=== PATIENT | male | born 1940 | race Caucasian/White ===

== ENCOUNTER 2020-09-12 14:46 | Inpatient (IN) | payer OTHER, MEDICARE ==
[2020-09-12 16:03] LABS: Absolute Lymphocytes (CBC) 1.3 K/uL (0.7-4.9); Hematocrit 15.3 % (39.6-49.0); Lymphocytes % 18.8 % (15.3-44.8); MPV 7.1 fL (7.6-11.3); RBC Red Blood Cell Count 1.68 M/uL (4.33-5.43)
--- OUTSIDE RECORDS SUMMARY | 2020-09-12 16:05 | XMS REPORT | Continuity of Care Document ---
:1940 Author Organization [facility] t Address [address] [place] [address] Care Team Providers Name Role Phone Kasandra Adler Attending Clinician Halie DWYER Attending Clinician Vianey Shipman DO Attending Clinician Keron DWYER, L Attending Clinician IVELISSE Attending Clinician Unavailable MARISOL Attending Clinician Unavailable SEVEN Attending Clinician Unavailable CADY Attending Clinician Unavailable Halie DWYER Admitting Clinician SEVEN Admitting Clinician Unavailable IVELISSE Admitting Clinician Unavailable Payers Payer Name Policy Type Policy Number Effective Date Expiration Date S ource Problems This patient has no known problems. Allergies, Adverse Reactions, Alerts This patient has no known allergies or adverse reactions. Medications This patient has no known medications. Procedures This patient has no known procedures. Encounters Start End Encounter Admission Attending Care Care Encounter Source Date/Time Date/Time Type Type Clinicians Facility Department ID 2020-08-14 Outpatient READMISSIO ENCGEN ENCGEN [id number] ENCGEN 11:57:40 N 2020-08-13 Outpatient NEW ENCGEN ENCGEN [id number] EN CGEN 10:49:07 ADMISSION 2020-07-20 2020-07-30 [facility] Thelma Hernadez [facility] [id number] 09:37:00 23:30:00 Encounter Madeline Ambrose [place] [id number] [place] [id number] [place] [id number] 2020-06-18 2020-06-18 Emergency Umberto, [facility] [id number] 12:26:00 14:57:00 Agnes [place] [id number] [place] [id number] [place] [id number] 2020-02-22 2020-02-22 Emergency [facility] [id number] 15:14:50 19:26:00 Thelma [place] [id number] [place] [id number] [place] [id number] 2020-01-26 2020-01-26 [facility] [id number] 10:10:34 10:47:28 Visit [facility] [id number] Surgical [id number] [facility] [id number] es [address] [place] 2019-12-29 2019-12-29 Outpatient MURADOV, [facility] [id number] [place] 00:00:00 00:00:00 RICHIE [address] 2019-12-13 2019-12-13 Outpatient MURADOV, [facility] [id number] [place] 00:00:00 00:00:00 RICHIE [address] 2019-11-28 2019-11-28 Outpatient [facility], [facility] [id number] 168 [place] 00:00:00 00:00:00 ASHLEY [address] 2019-11-28 2019-11-28 Outpatient [facility] [id number] [place] 00:00:00 00:00:[address] 2019-11-22 2019-11-22 Outpatient MURADOV, [facility] [id number] [place] 00:00:00 00:00:00 RICHIE [address] 2019-11-12 2019-11-17 Inpatient AMEZCUA, [facility] [id number] [place] 00:00:00 00:00:[address] 2019-10-20 2019-10-20 Outpatient MURADOV, [facility] [id number] [place] 00:00:00 00:00:00 RICHIE [address] 2019-10-13 2019-10-13 Outpatient IVELISSE, [facility] [id number] [place] 00:00:00 00:00:00 RICHIE [address] 2019-10-13 2019-10-13 Outpatient IVELISSE, [facility] [id number] [place] 00:00:00 00:00:00 RICHIE [address] 2019-10-07 2019-10-07 Emergency BRANDAN LAZAR [facility] [id number] [place] 00:00:00 00:00:[address] 2019-09-08 2019-09-09 Outpatient ALEK AMEZCUA [facility] [id number] [place] 00:00:00 00:00:[address] 2019-08-24 2019-08-24 Outpatient IVELISSE, [facility] [id number] [place] 00:00:00 00:00:00 RICHIE [address] 2019-07-25 2019-07-26 Outpatient AMEZCUA, [facility] [id number] [place] 00:00:00 00:00:[address] Results This patient has no known results.
[2020-09-12 16:20] LABS: AST/SGOT 19 U/L (15-37); Albumin 2.1 g/dL (3.4-5.0); Alkaline Phosphatase 71 U/L (45-117); BUN Blood Urea Nitrogen 20 mg/dL (7-18); Bicarbonate 30 mmol/L (21-32); Bilirubin Direct 0.1 mg/dL (0-0.2); Bilirubin Total 0.3 mg/dL (0.2-1.0); Glucose Level 64 mg/dL (74-106); Potassium 4.3 mmol/L (3.5-5.1); Protein, Total 6.4 g/dL (6.4-8.2); Sodium Level 140 mmol/L (136-145); Troponin (Emerg Dept Use Only) < 0.02 ng/mL (0.0-0.045)
[2020-09-12 16:21] LABS: ALT/SGPT < 6 U/L (12-78); Protime INR 1.22
[2020-09-12 16:42] LABS: Blood Morphology Comment NOTED (NOT SEEN); Platelet Estimate ADEQ; Rouleau NOTED; White Blood Cell Scan OK (OK)
[2020-09-12] MEDS ORDERED: D50W 50 ML IV ONE (16:52)
--- NOTE | 2020-09-12 16:57 | EDPHYS ---
Physician Documentation [facility] Name: Toby Huff Age: 79 yrs Sex: Male : 1940 Arrival Date: 09/12/2020 Time: 15:03 Bed 8 Private MD: ED Physician Henry Isaac HPI: 09/12 15:12 This 79 yrs old Male presents to ER via Unassigned with complaints of Low cp Blood Pressure. 15:12 Home health reports patient with low blood pressure this morning. Patient referred to ED for evaluation. Historical: - Allergies: 15:24 PENICILLINS; ca1 - Home Meds: 15:24 carbidopa-levodopa 50-200 mg Oral TbER 1 tab 4 times per day [Active]; pramipexole 1.5 ca1 mg Oral tab 0.5 tab QID [Active]; selegiline HCl 5 mg Oral cap 1 cap 2 times per day [Active]; Pradaxa 150 mg Oral cap 1 cap 2 times per day [Active]; levothyroxine 50 mcg tab 1 tab once daily [Active]; potassium chloride 10 mEq Oral cpER 1 cap 2 times per day [Active]; - PMHx: 15:24 a fib; Parkinsons; ca1 - PSHx: 15:24 bilateral knee replacements; ca1 - Immunization history:: Adult Immunizations not up to date, Pneumococcal vaccine is not up to date, Flu vaccine is not up to date. Covid Vaccine up to date. - Social history:: Smoking status: Patient/guardian denies using tobacco, the patient reports quitting approximately 50 years ago. ROS: 15:20 Constitutional: Positive for poor PO intake, Negative for fever. cp 15:20 Respiratory: Positive for chest congestion. cp 15:20 Abdomen/GI: Negative for vomiting, diarrhea, black/tarry stool, rectal bleeding. 15:20 Neuro: Negative for altered mental status. 15:20 Unable to obtain ROS due to patient's speech is incomprehensible. Exam: 15:25 Constitutional: The patient appears in no acute distress, alert, awake, cp non-diaphoretic, non-toxic, well developed, frail. 15:25 Head/Face: Normocephalic, atraumatic. cp 15:25 Eyes: Periorbital structures: appear normal, Pupils: equal, round, and reactive to light and accomodation, Sclera: no appreciated abnormality, Lids and lashes: appear normal, bilaterally. 15:25 ENT: External ear(s): are unremarkable, Nose: is normal, Posterior pharynx: Airway: no evidence of obstruction, patent. 15:25 Neck: ROM/movement: is normal, is supple. 15:25 Chest/axilla: Inspection: normal, Palpation: is normal, no crepitus, no tenderness. 15:25 Cardiovascular: Rate: normal, Rhythm: regular. 15:25 Respiratory: the patient does not display signs of respiratory distress, Respirations: normal, no use of accessory muscles, no retractions, labored breathing, is not present, Breath sounds: are clear throughout, no decreased breath sounds. 15:25 Skin: large decubitus ulcer. 15:25 Neuro: Mentation: responsive to voice able to follow commands, non-verbal, Motor: the patient is contracted. 16:15 ECG was reviewed by the Attending Physician. cp 16:46 Abdomen/GI: Rectal exam: Stool: brown, guaiac negative. 09/13 10:50 ECG was reviewed by the Attending Physician. Vital Signs: 09/12 15:05 BP 139 / 67; Pulse 61; Resp 20; Temp 96(TE); Pulse Ox 96% on R/A; Weight 52.16 kg (R); ca1 15:46 BP 138 / 107; Pulse 86; Resp 17; Pulse Ox 99% ; bp 17:00 BP 112 / 81; Pulse 89; Resp 23; Pulse Ox 93% ; bp 18:00 BP 119 / 78; Pulse 94; Resp 20; Pulse Ox 91% ; bp 19:00 BP 89 / 62; Pulse 94; Resp 20 S; Pulse Ox 98% on R/A; ca1 19:40 BP 86 / 64; Pulse 89; Resp 20 S; Pulse Ox 98% on R/A; ca1 20:33 BP 101 / 48; Pulse 90; Resp 18 S; Pulse Ox 98% on R/A; ca1 MDM: 15:12 Patient medically screened. cp 16:00 Differential Diagnosis sepsis, anemia, cardiac arrythmia, electrolyte abnormality. cp 16:50 Data reviewed: vital signs, nurses notes, lab test result(s), radiologic studies, plain cp films. 16:50 Physician consultation: Pk Graham MD was called at 16:50, was contacted at 16:50, cp regarding admission, to the telemetry unit. patient's condition, and will see patient in ED, shortly. 09/12 15:16 Order name: Troponin (emerg Dept Use Only) 09/12 15:16 Order name: Basic Metabolic Panel 09/12 15:16 Order name: CBC with Diff 09/12 15:16 Order name: LFT's 09/12 15:16 Order name: PT-INR 09/12 15:16 Order name: Procalcitonin; Complete Time: 16:45 09/12 15:16 Order name: Lactate; Complete Time: 16:24 09/12 15:16 Order name: Urine Microscopic Only; Complete Time: 17:44 09/12 15:16 Order name: Blood Culture Adult (2) 09/12 15:17 Order name: Troponin (Emerg Dept Use Only); Complete Time: 16:24 EDMO 09/12 15:17 Order name: Basic Metabolic Panel; Complete Time: 16:23 EDMO 09/12 16:28 Interpretation: Normal except: GLUC 64; BUN 20; CA 8.4. 09/12 15:17 Order name: CBC with Automated Diff; Complete Time: 16:45 EDMO 09/12 15:17 Order name: Liver (Hepatic) Function; Complete Time: 16:23 EDMO 09/12 15:17 Order name: Protime (+INR); Complete Time: 16:24 EDMO 09/12 16:24 Order name: Type And Screen 09/12 16:24 Order name: CBC Smear Scan; Complete Time: 16:45 EDMO 09/12 16:45 Order name: COVID-19 : Document "Date of Symptom Onset" if Symptomatic. 09/12 16:51 Order name: Retic Count 09/12 16:55 Order name: Bb Add On 09/12 16:58 Order name: Packed RBC Leukored [facility] 09/12 17:13 Order name: Urine Dipstick--Ancillary (enter results) 09/12 17:14 Order name: Urine Dipstick-Ancillary; Complete Time: 17:44 EDMO 09/12 18:23 Order name: ABO/RH no charge [facility] 09/12 19:22 Order name: SARS-COV-2 RT PCR [facility] 09/12 20:20 Order name: Troponin I EDMO 09/13 00:11 Order name: Troponin I EDMO 09/13 05:37 Order name: CBC with Automated Diff EDMS 09/13 05:43 Order name: Basic Metabolic Panel EDMO 09/13 06:31 Order name: Glucose, Ancillary Testing EDMO 09/12 15:16 Order name: EKG; Complete Time: 15:17 cp 09/12 15:16 Order name: XRAY Chest (1 view); Complete Time: 17:44 cp 09/12 15:16 Order name: Cardiac monitoring; Complete Time: 16:14 cp 09/12 15:16 Order name: EKG - Nurse/Tech; Complete Time: 16:14 cp 09/12 15:16 Order name: IV Saline Lock; Complete Time: 15:50 cp 09/12 15:16 Order name: Labs collected and sent; Complete Time: 15:50 cp 09/12 15:16 Order name: O2 Per Protocol; Complete Time: 15:50 cp 09/12 15:16 Order name: O2 Sat Monitoring; Complete Time: 15:50 cp 09/12 15:16 Order name: Urine Dipstick-Ancillary (obtain specimen); Complete Time: 17:17 cp 09/12 15:16 Order name: Cath; Complete Time: 17:17 cp 09/12 16:59 Order name: Labs - recollect needed: recollect type and screen, reband pt.; Complete bd Time: 17:29 09/12 19:23 Order name: Transfuse; Complete Time: 21:22 cp 09/13 08:01 Order name: Glucose, Ancillary Testing EDMO 09/13 12:49 Order name: Gram Stain--Anaerobic Bottle EDMO 09/13 14:12 Order name: Glucose, Ancillary Testing EDMO EC:15 Rate is 86 beats/min. Rhythm is irregular. QRS interval is normal. QT interval is cp prolonged at 400 msec. Interpreted by me. Reviewed by me. 09/13 10:50 Rate is 73 beats/min. Rhythm is irregular. QRS interval is normal. QT interval is cp normal. T waves are Inverted in lead III. Interpreted by me. Reviewed by me. Administered Medications: 09/12 16:45 Drug: D50W 50 ml Route: IVP; Site: right forearm; ca1 16:50 Drug: NS 0.9% 1000 ml Route: IV; Rate: 1 bolus; Site: right forearm; ca1 18:59 Follow up: Response: No adverse reaction; IV Status: Completed infusion; IV Intake: ca1 1000ml 19:45 Drug: NS 0.9% 500 ml Route: IV; Rate: bolus; Site: right forearm; ca1 Disposition: 17:10 Chart complete. cp Disposition: 09/12/20 16:56 Hospitalization ordered by Pk Graham for Inpatient Admission. Preliminary diagnosis are Anemia in chronic diseases classified elsewhere, Hypotension. - Bed requested for Telemetry/MedSurg (Inpatient). - Status is Inpatient Admission. aa5 - Condition is Stable. - Problem is new. - Symptoms have improved. Addendum: 09/15/2020 07:08 Co-signature as Attending Physician, Henry Isaac MD. m a2 Signatures: Dispatcher [employer] EDMS Donya Key Diana, RN RN Cece Gong RN RN aa5 Angel Mcbride PA PA cp Alzahri, Mohammad, MD MD ma2 Jaylyn Pleitez RN RN ca1 Corrections: (The following items were deleted from the chart) 09/12 16:28 16:27 Normal except: GLUC 64; BUN 20. cp cp 18:20 16:45 CORONAVIRUS ordered. EDMO EDMS 18:23 16:56 Hospitalization Ordered by Pk Graham MD for Inpatient Admission. Preliminary bd diagnosis is Anemia in chronic diseases classified elsewhere; Hypotension. Bed requested for Telemetry/MedSurg (Inpatient). Status is Inpatient Admission. Condition is Stable. Problem is new. Symptoms have improved. cp 09/13 15:26 09/12 18:23 09/12/2020 16:56 Hospitalization Ordered by Pk Graham MD for Inpatient dw Admission. Preliminary diagnosis is Anemia in chronic diseases classified elsewhere; Hypotension. Bed requested for [facility] ER HOLD. Status is Inpatient Admission. Condition is Stable. Problem is new. Symptoms have improved. bd 09/13 16:12 15:26 09/12/2020 16:56 Hospitalization Ordered by Pk Graham MD for Inpatient aa5 Admission. Preliminary diagnosis is Anemia in chronic diseases classified elsewhere; Hypotension. Bed requested for Telemetry/MedSurg (Inpatient). Status is Inpatient Admission. Condition is Stable. Problem is new. Symptoms have improved. dw :09/12 15:20 Constitutional: Negative for body aches, chills, fever, poor PO intake, cp cp 09/13 15:20 Eyes: Negative for injury, pain, redness, and discharge, cp cp
--- NOTE | 2020-09-12 16:57 | ER ---
Nurse's Notes [facility] Name: Toby Huff Age: 79 yrs Sex: Male : 1940 Arrival Date: 09/12/2020 Time: 15:03 Bed 8 Private MD: Diagnosis: Anemia in chronic diseases classified elsewhere;Hypotension Presentation: 09/12 15:05 Chief complaint: EMS states: Called for low BP. HH states BP was on the 70s systolic. ca1 Upon arrival on scene BP was 75/45. IV initiated, NS 500 ML bolus given. Last BP 111/80. BGL 71. Temp 98F. Pt has hx of Parkinson's and being seen by HH for Decubitus Ulcers at sacral region. Denies fever. Coronavirus screen: Client denies travel out of the [place] in the last 14 days. congestion, cough unrelated to allergies, Client presents with at least one sign or symptom that may indicate coronavirus-19. Standard/surgical mask placed on the client. Provider contacted for isolation considerations. Ebola Screen: Patient negative for fever greater than or equal to 101.5 degrees Fahrenheit, and additional compatible Ebola Virus Disease symptoms Patient denies exposure to infectious person. Patient denies travel to an Ebola-affected area in the 21 days before illness onset. No symptoms or risks identified at this time. Initial Sepsis Screen: Does the patient meet any 2 criteria? No. Patient's initial sepsis screen is negative. Does the patient have a suspected source of infection? No. Patient's initial sepsis screen is negative. Risk Assessment: Do you want to hurt yourself or someone else? Patient reports no desire to harm self or others. Onset of symptoms was September 12, 2020. 15:05 Method Of Arrival: EMS[facility] ca1 15:05 Acuity: NIKITA 2 ca1 Triage Assessment: 15:10 General: Appears distressed, uncomfortable, slender, Behavior is agitated, anxious, bp uncooperative. Pain: Unable to use pain scale. Does not appear to understand pain scale. EENT: No deficits noted. Neuro: No deficits noted. Cardiovascular: No deficits noted. Respiratory: No deficits noted. GI: No signs and/or symptoms were reported involving the gastrointestinal system. : No signs and/or symptoms were reported regarding the genitourinary system. Derm: Wound noted coccyx. Musculoskeletal: Range of motion: intact in all extremities. Historical: - Allergies: 15:24 PENICILLINS; ca1 - Home Meds: 15:24 carbidopa-levodopa 50-200 mg Oral TbER 1 tab 4 times per day [Active]; pramipexole 1.5 ca1 mg Oral tab 0.5 tab QID [Active]; selegiline HCl 5 mg Oral cap 1 cap 2 times per day [Active]; Pradaxa 150 mg Oral cap 1 cap 2 times per day [Active]; levothyroxine 50 mcg tab 1 tab once daily [Active]; potassium chloride 10 mEq Oral cpER 1 cap 2 times per day [Active]; - PMHx: 15:24 a fib; Parkinsons; ca1 - PSHx: 15:24 bilateral knee replacements; ca1 - Immunization history:: Adult Immunizations not up to date, Pneumococcal vaccine is not up to date, Flu vaccine is not up to date. Covid Vaccine up to date. - Social history:: Smoking status: Patient/guardian denies using tobacco, the patient reports quitting approximately 50 years ago. Screenin:10 Abuse screen: Denies threats or abuse. Denies injuries from another. Nutritional bp screening: No deficits noted. Tuberculosis screening: No symptoms or risk factors identified. Fall Risk None identified. Assessment: 15:10 General: SEE TRIAGE NOTE. bp 17:00 Reassessment: No changes from previously documented assessment. Patient and/or family bp updated on plan of care and expected duration. Pain level reassessed. ALL CURRENT ORDERS COMPLETE, ADMIT INITIATED. 18:12 Reassessment: Patient appears in no apparent distress at this time. No changes from bp previously documented assessment. Patient and/or family updated on plan of care and expected duration. Pain level reassessed. 18:58 Reassessment: Patient appears in no apparent distress at this time. Patient and/or ca1 family updated on plan of care and expected duration. Pain level reassessed. Vital Signs: 15:05 BP 139 / 67; Pulse 61; Resp 20; Temp 96(TE); Pulse Ox 96% on R/A; Weight 52.16 kg (R); ca1 15:46 BP 138 / 107; Pulse 86; Resp 17; Pulse Ox 99% ; bp 17:00 BP 112 / 81; Pulse 89; Resp 23; Pulse Ox 93% ; bp 18:00 BP 119 / 78; Pulse 94; Resp 20; Pulse Ox 91% ; bp 19:00 BP 89 / 62; Pulse 94; Resp 20 S; Pulse Ox 98% on R/A; ca1 19:40 BP 86 / 64; Pulse 89; Resp 20 S; Pulse Ox 98% on R/A; ca1 20:33 BP 101 / 48; Pulse 90; Resp 18 S; Pulse Ox 98% on R/A; ca1 ED Course: 15:03 Patient arrived in ED. iw 15:03 Angel Mcbride PA is PHCP. cp 15:03 Henry Isaac MD is Attending Physician. cp 15:03 Jaylyn Pleitez, GIANLUCA is Primary Nurse. ca1 15:05 Arm band placed on right wrist. ca1 15:05 Maintain EMS IV. Dressing intact. Good blood return noted. Site clean \T\ dry. Gauge \T\ ca 1 site: LAC 20G. 15:10 Patient has correct armband on for positive identification. Bed in low position. Call bp light in reach. Side rails up X2. Adult w/ patient. 15:22 Triage completed. ca1 15:45 Inserted saline lock: 22 gauge in right forearm, using aseptic technique. Blood bp collected. 16:13 EKG done. mh5 16:13 Liver (Hepatic) Function Sent. mh5 16:13 Protime (+INR) Sent. mh5 16:13 CBC with Automated Diff Sent. mh5 16:13 Troponin (Emerg Dept Use Only) Sent. mh5 16:14 Basic Metabolic Panel Sent. mh5 16:14 Blood Culture Adult (2) Sent. mh5 16:14 Lactate Sent. mh5 16:14 Procalcitonin Sent. mh5 16:14 LFT's Sent. mh5 16:14 Troponin (emerg Dept Use Only) Sent. mh5 16:14 Basic Metabolic Panel Sent. mh5 16:15 CBC with Diff Sent. mh5 16:15 PT-INR Sent. mh5 16:19 XRAY Chest (1 view) In Process Unspecified. EDMS 16:56 Pk Graham MD is Hospitalizing Provider. cp 17:08 Hernadez cath inserted, using sterile technique, 18 Fr., by mi, balloon inflated, to ca1 gravity drainage, urine specimen collected. returned clear yellow urine. Patient tolerated well. 17:16 Urine Dipstick-Ancillary Sent. mh5 17:16 Urine Dipstick--Ancillary (enter results) Sent. 5 17:17 Urine Microscopic Only Sent. [facility] 19:18 No provider procedures requiring assistance completed. Patient admitted, IV remains in ca1 place. Administered Medications: 16:45 Drug: D50W 50 ml Route: IVP; Site: right forearm; ca1 16:50 Drug: NS 0.9% 1000 ml Route: IV; Rate: 1 bolus; Site: right forearm; ca1 18:59 Follow up: Response: No adverse reaction; IV Status: Completed infusion; IV Intake: ca1 1000ml 19:45 Drug: NS 0.9% 500 ml Route: IV; Rate: bolus; Site: right forearm; ca1 Intake: 18:59 IV: 1000ml; Total: 1000ml. ca1 Outcome: 16:56 Decision to Hospitalize by Provider. cp 19:18 Admitted to ER Hold. Please see [facility] for further documentation. ca1 19:18 Condition: stable 19:18 Instructed on the need for admit. 09/13 16:12 Patient left the ED. 5 Signatures: Dispatcher [employer] EDAmanda Rausch RN RN Cece Gong RN RN [facility] Angel Mcbride PA PA cp Martinez, Maria [facility] Carlos Barillas RN RN bp Acob, Cheryl, RN RN ca1 Corrections: (The following items were deleted from the chart) 09/12 20:00 19:00 BP 89 / 92; Pulse 94bpm; Resp 20bpm; Spontaneous; Pulse Ox 98% RA; ca1 ca1
[2020-09-12 17:24] LABS: Urine Bacteria NONE SEEN /HPF (NONE SEEN); Urine Mucus 1+ /HPF (NONE SEEN); Urine RBC <5 /HPF (NONE SEEN)
[2020-09-12 17:25] LABS: Urine Blood NEGATIVE (NEG); Urine Glucose NEGATIVE (NEG); Urine Protein NEGATIVE (NEG); Urine Specific Gravity 1.025 (1.005-1.030); Urine pH 5.5 (5.0-7.0)
[2020-09-12 17:35] LABS: RBC Red Blood Cell Count 1.69 M/uL (4.33-5.43)
--- NOTE | 2020-09-12 17:37 | RAD REPORT ---
EXAM DESCRIPTION: Ladonna Single View09/12/2020 4:23 pm CLINICAL HISTORY: Cough COMPARISON: 2016 FINDINGS: Moderate bilateral pulmonary opacities. The heart is moderately enlarged IMPRESSION: These findings probably represent CHF
[2020-09-12] MEDS ORDERED: NA CHLORIDE 0.9% 1,000 ML ONE (19:32)
[2020-09-12] MEDS ORDERED: FUROSEMIDE 20 MG/ 2ML VIAL IV ONE (19:37)
[2020-09-12] MEDS ORDERED: ACETAMINOPHEN 500 MG TAB PO PRN (19:41)
[2020-09-12] MEDS ORDERED: ONDANSETRON 4 MG/2 ML VIAL IV PRN (19:41)
[2020-09-12] MEDS ORDERED: NA CHLORIDE 0.9% 250 ML IV SCH (20:00)
--- NOTE | 2020-09-12 20:57 | P.HP ---
Certification for Inpatient Patient admitted to: Inpatient With expected LOS: >2 Midnights Practitioner: I am a practitioner with admitting privileges, knowledge of patient current condition, hospital course, and medical plan of care. Services: Services provided to patient in accordance with Admission requirements found in Title 42 Section 412.3 of the Code of Federal Regulations Patient History Date of Service: 09/12/20 Primary Care Provider: Gladys Reason for admission: Anemia History of Present Illness: Patient who recently established care with me. The chad has a hisotry of Parkinsons and CHF. He was recently admitted to [facility] for an infected left elbow Requiring surgery and a stay in rehab. During this time the patient lost 20lbs and developed a stage 4 sacral decubitus. The patient came to the wound care center this Thursday. He was hypotensive and difficult to arouse this morning. His called. Was directed to call EMS The patient was found to be very Anemic and Guiac negative. The patient is not verbal. The history is taken with the ER. Staff and the patients spouse who is at the bedside. Allergies Penicillins Allergy (Verified 09/11/20 17:50) Unknown Home Medications: Carbidopa/Levodopa [Carbidopa-Levo ER 50-200 Tab] 1 each PO QID 09/11/20 Dabigatran Etexilate Mesylate [Pradaxa] 150 mg PO BID 09/11/20 Gatifloxacin 2.5 ml OP TID 09/11/20 Ibuprofen 200 mg PO Q6HP PRN 09/11/20 L.acidoph,Paracasei, B.lactis [Probiotic] 1 each PO DAILY 09/11/20 Levothyroxine [Synthroid] 50 mcg PO [id number] 09/11/20 Potassium Chloride [Micro-K] 10 meq PO BID 09/11/20 Pramipexole Di-HCl [Pramipexole ER] 1.5 mg PO QID 09/11/20 Selegiline HCl 5 mg PO BID 09/11/20 - Past Medical/Surgical History Diabetic: No -: Parkinson's Disease -: Incontinence -: Hypothyroidism -: Chronic Constipation -: A Fib -: Bilateral knee replacements -: Bilateral inguinal hernia repairs - Social History Alcohol use: No Review of Systems is unable to be obtained Physical Examination - Physical Exam General: Cachectic, Unresponsive HEENT: Atraumatic, PERRLA, Mucous membr. moist/pink, EOMI, Sclerae nonicteric Neck: Supple, 2+ carotid pulse no bruit, No LAD, Without JVD or thyroid abnormality Respiratory: Clear to auscultation bilaterally, Normal air movement Cardiovascular: Regular rate/rhythm, Normal S1 S2 Gastrointestinal: Normal bowel sounds, No tenderness Musculoskeletal: No tenderness Integumentary: No rashes, Pressure ulcer (stage 4 sacral ulcer) Neurological: Normal gait, Normal speech, Normal strength at 5/5 x4 extr, Normal tone, Normal affect Lymphatics: No axilla or inguinal lymphadenopathy - Studies Laboratory Data (last 24 hrs) 09/12/20 19:53: Troponin I < 0.02 09/12/20 15:45: PT 14.3 H, INR 1.22 09/12/20 15:45: WBC 6.80 D, Hgb 5.1 L* D, Hct 15.3 L* D, Plt Count 305 09/12/20 15:45: Sodium 140, Potassium 4.3, BUN 20 H, Creatinine 0.69, Glucose 64 L, Total Bilirubin 0.3, AST 19, ALT < 6 L, Alkaline Phosphatase 71 Assessment and Plan - Problems (Diagnosis) (1) Anemia Current Visit: Yes Status: Acute Plan: He is currently guiac negative. Will check reticulocyte count and iron studies. Will transfuse 2 units PRBC. May need lasix in between to prevent fluid overload. Will monitor his labs Qualifiers: Anemia type: unspecified type Qualified Code(s): D64.9 - Anemia, unspecified (2) CHF (congestive heart failure) Current Visit: Yes Status: Acute Plan: Patient of Dr. Nelson's he is currently on no medications. Will give the patient lasix if necessary as he is recieving fluids and blood products. Qualifiers: Heart failure type: systolic Heart failure chronicity: chronic Qualified Code(s): I50.22 - Chronic systolic (congestive) heart failure (3) End of life care Current Visit: Yes Status: Acute Plan: Have discussed with his and power of compliance attorney. His recent hospitalization seems to have greatly weakened him. judging by his weight loss and current anemia. Will start with transfusion. Possible gently hydration. However if he falls to improve than hospice is a possiblity in the patients future. His wanted DNR. Also did not want a PEG tube per his . (4) Parkinson disease Current Visit: No Status: Acute Plan: will continue carbidopa (5) Stage IV pressure ulcer of sacral region Current Visit: No Status: Acute Plan: will continue current dresssing Have discussed with the that given his current nutritional status he will have a difficult healing process. Discharge Plan: Home Plan to discharge in: Greater than 2 days - Advance Directives Does patient have a Living Will: Yes Does patient have a Durable POA for Healthcare: Yes - Code Status/Comfort Care Code Status Assessed: Yes Code Status: Do Not Attempt Resuscitat Physician Review: Patient Assessed, Agree with Above Assessment and Plan (spoouse) Critical Care: No
[2020-09-12] MEDS: CARBIDOPA LEVO PO SCH (21:00)
[2020-09-12] MEDS ORDERED: NA CHLORIDE 0.9% 250 ML ONE (21:07)
[2020-09-13 05:30] LABS: Absolute Lymphocytes (CBC) 0.8 K/uL (0.7-4.9); Basophils % 1.8 % (0-1.3); Hematocrit 24.6 % (39.6-49.0); Lymphocytes % 14.4 % (15.3-44.8); RBC Red Blood Cell Count 2.73 M/uL (4.33-5.43)
[2020-09-13 05:42] LABS: BUN Blood Urea Nitrogen 17 mg/dL (7-18); Bicarbonate 27 mmol/L (21-32); Potassium 3.8 mmol/L (3.5-5.1); Sodium Level 139 mmol/L (136-145)
[2020-09-13 05:43] LABS: Glucose Level 44 mg/dL (74-106)
[2020-09-13] MEDS ORDERED: D50W 25 GM/50 ML SYRINGE IV ONE ×7 (05:54→20:21)
[2020-09-13] MEDS ORDERED: INFLUENZA VACCINE (for 3y+) 0.5 ML DOSE IMVAC ONE (08:00)
[2020-09-13] MEDS ORDERED: D50W 50 ML IV ONE (08:09)
[2020-09-13] MEDS: LEVOTHYROXINE SOD 0.05 MG TABLET PO SCH (08:38)
[2020-09-13] MEDS: CARBIDOPA LEVO PO SCH ×4 (09:00→21:00)
--- NOTE | 2020-09-13 11:23 | P.PN ---
Subjective Date of Service: 09/13/20 Primary Care Provider: Gladys Chief Complaint: Anemia Subjective: No new changes Review of Systems is unable to be obtained Physical Examination - Vital Signs Temperature: 97.7 F Blood Pressure: 138/84 Pulse: 75 Respirations: 19 Pulse Ox (%): 97 - Physical Exam General: Unresponsive HEENT: Atraumatic, PERRLA, EOMI Neck: Supple, JVD not distended Respiratory: Clear to auscultation bilaterally, Normal air movement Cardiovascular: Regular rate/rhythm, Normal S1 S2 Gastrointestinal: Normal bowel sounds, No tenderness Musculoskeletal: No tenderness Integumentary: No rashes Neurological: Normal speech, Normal tone, Normal affect Lymphatics: No axilla or inguinal lymphadenopathy - Studies Laboratory Data (last 24 hrs) 09/12/20 19:53: Troponin I < 0.02 09/12/20 15:45: PT 14.3 H, INR 1.22 09/12/20 15:45: WBC 6.80 D, Hgb 5.1 L* D, Hct 15.3 L* D, Plt Count 305 09/12/20 15:45: Sodium 140, Potassium 4.3, BUN 20 H, Creatinine 0.69, Glucose 64 L, Total Bilirubin 0.3, AST 19, ALT < 6 L, Alkaline Phosphatase 71 Assessment & Plan - Problems (Diagnosis) (1) Anemia Current Visit: Yes Status: Acute Plan: He is currently guiac negative. Will check reticulocyte count and iron studies. Will transfuse 2 units PRBC. May need lasix in between to prevent fluid overload. low reticulocyte count. We need to continue nutritional support. His anemia is corrected. Qualifiers: Anemia type: unspecified type Qualified Code(s): D64.9 - Anemia, unspecified (2) CHF (congestive heart failure) Current Visit: Yes Status: Acute Plan: Patient of Dr. Nelson's he is currently on no medications. Will give the patient lasix if necessary as he is recieving fluids and blood products. Qualifiers: Heart failure type: systolic Heart failure chronicity: chronic Qualified Code(s): I50.22 - Chronic systolic (congestive) heart failure (3) End of life care Current Visit: Yes Status: Acute Plan: Have discussed with his and power of claims attorney. His recent hospitalization seems to have greatly weakened him. judging by his weight loss and current anemia. Will start with transfusion. Possible gently hydration. However if he falls to improve than hospice is a possiblity in the patients future. His wanted DNR. Also did not want a PEG tube per his . (4) Parkinson disease Current Visit: No Status: Acute Plan: will continue carbidopa (5) Stage IV pressure ulcer of sacral region Current Visit: No Status: Acute Plan: will continue current dresssing Have discussed with the that given his current nutritional status he will have a difficult healing process. (6) Hypoglycemia Current Visit: Yes Status: Acute Plan: will start the patient on d5 1/2 N. Give thiamiine first. Will see if we can feed him. Will consider PT after we correct this. Discharge Plan: Home Plan to discharge in: Greater than 2 days - Code Status/Comfort Care Code Status Assessed: No Physician Review: Patient Assessed, Agree with Above Assessment and Plan (spoouse) Critical Care: No Time Spent Managing Pts Care (In Minutes): 30
[2020-09-13] MEDS ORDERED: THIAMINE 200 MG/2 ML INJ IVP ONE (11:24)
[2020-09-13] MEDS ORDERED: D5 0.45 NS 1,000 ML IV ONE (11:57)
[2020-09-13] MEDS: D5 0.45 NS 1,000 ML IV SCH (12:00)
[2020-09-13] MEDS ORDERED: ACETAMINOPHEN 500 MG TAB ONE (15:19)
[2020-09-13] MEDS ORDERED: THIAMINE 200 MG/2 ML INJ ONE (15:19)
[2020-09-14] MEDS: LEVOTHYROXINE SOD 0.05 MG TABLET PO SCH (06:03)
[2020-09-14] MEDS: D5 0.45 NS 1,000 ML IV SCH ×3 (06:06→21:40)
[2020-09-14] MEDS ORDERED: NA CHLORIDE 0.9% 500 ML IV ONE ×2 (07:51→22:00)
--- NOTE | 2020-09-14 07:51 | EKG ---
Test Date: 2020-09-12 Test Time: 16:06:08 Washer Hand: DESTINY MEASUREMENT RESULTS: Intervals: Rate: 86 IA: QRSD: 90 QT: 400 QTc: 478 [place]: P: IA: QRS: 72 T: -30 INTERPRETIVE STATEMENTS: Atrial fibrillation with premature ventricular or aberrantly conducted complexes Low voltage QRS Nonspecific T wave abnormality, probably digitalis effect Prolonged QT Abnormal ECG Compared to ECG 04/22/2016 15:55:36 Ventricular premature complex(es) now present Low QRS voltage now present T-wave abnormality now present Prolonged QT interval now present Electronically Signed On 09-14-20 07:49:23 JUKE BOX MECHANIC by Herber Smith
--- NOTE | 2020-09-14 07:52 | EKG ---
Test Date: 2020-09-13 Test Time: 10:44:49 Cloud Solutions Architect: ANIBAL MEASUREMENT RESULTS: Intervals: Rate: 73 MA: QRSD: 98 QT: 400 QTc: 440 [place]: P: MA: QRS: 94 T: 19 INTERPRETIVE STATEMENTS: Atrial fibrillation Rightward axis Low voltage QRS Abnormal ECG Compared to ECG 09/12/2020 16:06:08 Right-axis deviation now present Ventricular premature complex(es) no longer present T-wave abnormality no longer present Prolonged QT interval no longer present Electronically Signed On 09-14-20 07:49:36 SAFETY DEPOSIT CLERK by Herber Smith
[2020-09-14] MEDS: ENSURE HIGH PROTEIN 237 ML CAN PO SCH ×3 (08:11→17:00)
--- NOTE | 2020-09-14 08:55 | P.PN ---
Subjective Date of Service: 09/14/20 Primary Care Provider: Gladys Chief Complaint: Anemia Subjective: No new changes Review of Systems is unable to be obtained Physical Examination - Vital Signs Temperature: 97.7 F Blood Pressure: 100/59 Pulse: 101 Respirations: 20 Pulse Ox (%): 94 - Physical Exam General: Unresponsive (wakes up to questions then goes back to sleep ) HEENT: Atraumatic, PERRLA, EOMI Neck: Supple, JVD not distended Respiratory: Clear to auscultation bilaterally, Normal air movement Cardiovascular: Regular rate/rhythm, Normal S1 S2 Gastrointestinal: Hypoactive, No tenderness Musculoskeletal: No tenderness Integumentary: No rashes Neurological: Normal speech, Normal tone, Normal affect Lymphatics: No axilla or inguinal lymphadenopathy Assessment & Plan - Problems (Diagnosis) (1) End of life care Current Visit: Yes Status: Acute Plan: Have discussed with his and power of commonwealth attorney. His recent hospitalization seems to have greatly weakened him. judging by his weight loss and current anemia. Will start with transfusion. Possible gently hydration. However if he falls to improve than hospice is a possiblity in the patients future. His wanted DNR. Also did not want a PEG tube per his . 09/14 Patient is hypotensive, hypoglycemic. The got him to eat 2 bites yesterday. States PT worked with him. However he would fall asleep during the PT session. Nursing has not seen him eat. Will try ensure shakes and 1 to 1 feeding. He has lost approx 30-50lbs in the last 2 months. Will consult hospice. [facility] his [facility] Mrs Huff [facility] Will have them do a consult. (2) CHF (congestive heart failure) Current Visit: Yes Status: Acute Plan: Patient of Dr. Nelson's he is currently on no medications. Will give the patient lasix if necessary as he is recieving fluids and blood products. 09/14 Hypotensive will bolus him another 500 cc of fluids Qualifiers: Heart failure type: systolic Heart failure chronicity: chronic Qualified Code(s): I50.22 - Chronic systolic (congestive) heart failure (3) Parkinson disease Current Visit: No Status: Acute Plan: will continue carbidopa (4) Stage IV pressure ulcer of sacral region Current Visit: No Status: Acute Plan: will continue current dresssing Have discussed with the that given his current nutritional status he will have a difficult healing process. (5) Hypoglycemia Current Visit: Yes Status: Acute Plan: will start the patient on d5 1/2 N. Give thiamiine first. Will see if we can feed him. Will consider PT after we correct this. (6) Anemia Current Visit: Yes Status: Acute Plan: He is currently guiac negative. Will check reticulocyte count and iron studies. Will transfuse 2 units PRBC. May need lasix in between to prevent fluid overload. low reticulocyte count. We need to continue nutritional support. Aplastic anemia His anemia is corrected. Qualifiers: Anemia type: bone marrow failure Discharge Plan: Other Plan to discharge in: Greater than 2 days - Code Status/Comfort Care Code Status Assessed: No Physician Review: Patient Assessed, Agree with Above Assessment and Plan (spoouse) Critical Care: No Time Spent Managing Pts Care (In Minutes): 45
[2020-09-14] MEDS: CARBIDOPA LEVO PO SCH ×4 (09:00→21:00)
[2020-09-14] MEDS ORDERED: GLUCAGON 1 MG/VIAL IM PRN (20:39)
[2020-09-14] MEDS ORDERED: D50W 25 GM/50 ML SYRINGE IV PRN (20:39)
[2020-09-14] MEDS: D50W 50 ML IV ONE ×2 (20:46→20:57)
[2020-09-14] MEDS ORDERED: CIPROFLOXACIN HCL 500 MG TAB PO SCH (21:00)
[2020-09-14] MEDS ORDERED: NA CHLORIDE 0.9% 250 ML IV ONE ×2 (21:50→23:27)
[2020-09-14] MEDS ORDERED: SODIUM CHL 0.9% 1000 ML BAG IV SCH (22:00)
[2020-09-15] MEDS: LEVOTHYROXINE SOD 0.05 MG TABLET PO SCH (06:04)
[2020-09-15] MEDS ORDERED: VANCOMYCIN 1.5 GM in NA CHLORIDE 0.9% 500 ML IVPB ONE (08:00)
[2020-09-15] MEDS ORDERED: D50W 25 GM/50 ML VIAL IV PRN (08:00)
[2020-09-15 08:22] LABS: Absolute Lymphocytes (CBC) 0.5 K/uL (0.7-4.9); Basophils % 0.5 % (0-1.3); Hematocrit 25.7 % (39.6-49.0); MPV 7.5 fL (7.6-11.3); RBC Red Blood Cell Count 2.83 M/uL (4.33-5.43)
[2020-09-15] MEDS: CARBIDOPA LEVO PO SCH (09:00)
[2020-09-15] MEDS: COLLAGENASE 30 GM OINTMENT TOP SCH (09:05)
[2020-09-15] MEDS: ENSURE HIGH PROTEIN 237 ML CAN PO SCH ×3 (09:05→17:00)
[2020-09-15] MEDS ORDERED: SODIUM CHLORIDE 0.9% 10ML INJ IV PRN (09:13)
--- NOTE | 2020-09-15 09:21 | P.PN ---
Subjective Date of Service: 09/15/20 Primary Care Provider: Gladys Chief Complaint: Anemia Subjective: No new changes Review of Systems 10-point ROS is otherwise unremarkable Gastrointestinal: Diarrhea Physical Examination - Vital Signs Temperature: 98.5 F Blood Pressure: 82/47 Pulse: 90 Respirations: 16 Pulse Ox (%): 95 - Physical Exam General: Alert, In no apparent distress HEENT: Atraumatic, PERRLA, EOMI Neck: Supple, JVD not distended Respiratory: Clear to auscultation bilaterally, Normal air movement Cardiovascular: Regular rate/rhythm, Normal S1 S2 Gastrointestinal: Normal bowel sounds, No tenderness Musculoskeletal: No tenderness Integumentary: No rashes Neurological: Normal speech, Normal tone, Normal affect Lymphatics: No axilla or inguinal lymphadenopathy - Studies Microbiology Data (last 24 hrs): 09/12/20 15:30 Blood - Blood Aerobic Blood Culture - Final Meth Resistant Staph Aureus 09/12/20 15:30 Blood - Blood Blood Culture Gram Stain - Final 09/12/20 15:30 Blood - Blood Anaerobic Blood Culture - Final Meth Resistant Staph Aureus 09/12/20 15:30 Blood - Blood Gram Stain - Final Assessment & Plan - Problems (Diagnosis) (1) MRSA (methicillin resistant staph aureus) culture positive Current Visit: Yes Status: Acute Plan: 2 bottles posiitive Will start him on vanco. Will continue fluid bolus to improve bp. Levophed perhaps in the short term. However would like to avoid that. Will continue fluids and antibiotics. (2) CHF (congestive heart failure) Current Visit: Yes Status: Acute Plan: Patient of Dr. Nelson's he is currently on no medications. Will give the patient lasix if necessary as he is recieving fluids and blood products. 09/14 Hypotensive will bolus him another 500 cc of fluids Qualifiers: Heart failure type: systolic Heart failure chronicity: chronic Qualified Code(s): I50.22 - Chronic systolic (congestive) heart failure (3) Parkinson disease Current Visit: No Status: Acute Plan: will continue carbidopa (4) End of life care Current Visit: Yes Status: Acute Plan: Have discussed with his and power of attorney at law. His recent hospitalization seems to have greatly weakened him. judging by his weight loss and current anemia. Will start with transfusion. Possible gently hydration. However if he falls to improve than hospice is a possiblity in the patients future. His wanted DNR. Also did not want a PEG tube per his . 09/14 Patient patient was doing better yesteday. Was able to eat. did not want to talk about hospice. The improvement is good. She is hopefully. Will keep monitoring the patient. Hopefully he continues to improve. However will adjust as we can (5) Stage IV pressure ulcer of sacral region Current Visit: No Status: Acute Plan: will continue current dresssing Have discussed with the that given his current nutritional status he will have a difficult healing process. (6) Hypoglycemia Current Visit: Yes Status: Acute Plan: will start the patient on d5 08/18 N. Give thiamiine first. Will see if we can feed him. Will consider PT after we correct this. (7) Anemia Current Visit: Yes Status: Acute Plan: He is currently guiac negative. Will check reticulocyte count and iron studies. Will transfuse 2 units PRBC. May need lasix in between to prevent fluid overl oad. low reticulocyte count. We need to continue nutritional support. Aplastic anemia His anemia is corrected. Qualifiers: Anemia type: bone marrow failure Discharge Plan: Home Plan to discharge in: Greater than 2 days - Code Status/Comfort Care Code Status Assessed: No Physician Review: Patient Assessed, Agree with Above Assessment and Plan (spoouse) Critical Care: No Time Spent Managing Pts Care (In Minutes): 35
[2020-09-15] MEDS ORDERED: PANTOPRAZOLE 40 MG INJ IVP ONE (10:00)
[2020-09-15] MEDS: D5 0.45 NS 1,000 ML IV SCH ×2 (10:30→21:55)
[2020-09-15] MEDS: CARBIDOPA PO SCH ×3 (13:13→21:00)
[2020-09-15] MEDS: ENTACAPONE PO SCH ×3 (13:13→21:00)
[2020-09-15] MEDS: LEVODOPA PO SCH ×3 (13:13→21:00)
[2020-09-15] MEDS ORDERED: LORazepam 2 MG/ML VIAL IV ONE (19:44)
[2020-09-15] MEDS: VANCOMYCIN/NS 1 gm 1 GM/250 ML BAG IVPB ONE ×2 (21:54→21:59)
[2020-09-16] MEDS: D5 0.45 NS 1,000 ML IV SCH ×3 (00:09→23:47)
[2020-09-16] MEDS: LEVOTHYROXINE SOD 0.05 MG TABLET PO SCH (05:17)
[2020-09-16 07:06] LABS: Absolute Lymphocytes (CBC) 0.8 K/uL (0.7-4.9); Basophils % 0.4 % (0-1.3); Hematocrit 26.8 % (39.6-49.0); Lymphocytes % 9.6 % (15.3-44.8); MPV 7.7 fL (7.6-11.3); RBC Red Blood Cell Count 2.97 M/uL (4.33-5.43)
[2020-09-16 07:20] LABS: BUN Blood Urea Nitrogen 15 mg/dL (7-18); Bicarbonate 28 mmol/L (21-32); Glucose Level 118 mg/dL (74-106); Potassium 3.6 mmol/L (3.5-5.1); Sodium Level 133 mmol/L (136-145)
[2020-09-16 07:21] LABS: AST/SGOT 26 U/L (15-37); Albumin 1.7 g/dL (3.4-5.0); Alkaline Phosphatase 72 U/L (45-117); Bilirubin Total 0.4 mg/dL (0.2-1.0); Protein, Total 5.8 g/dL (6.4-8.2)
[2020-09-16 07:34] LABS: ALT/SGPT < 6 U/L (12-78)
[2020-09-16] MEDS: CARBIDOPA PO SCH ×4 (09:00→22:24)
[2020-09-16] MEDS: COLLAGENASE 30 GM OINTMENT TOP SCH (09:00)
[2020-09-16] MEDS: LEVODOPA PO SCH ×4 (09:00→22:24)
[2020-09-16] MEDS: ENSURE HIGH PROTEIN 237 ML CAN PO SCH ×3 (09:00→17:00)
[2020-09-16] MEDS: ENTACAPONE PO SCH ×4 (09:00→22:24)
--- NOTE | 2020-09-16 11:29 | P.PN ---
Subjective Date of Service: 09/16/20 Primary Care Provider: Gladys Chief Complaint: Anemia Subjective: Improving Review of Systems is unable to be obtained (Patient had some agitation last night. Moved closer to the nurses station) Physical Examination - Vital Signs Temperature: 97.0 F Blood Pressure: 105/59 Pulse: 83 Respirations: 19 Pulse Ox (%): 97 - Physical Exam General: Alert, In no apparent distress HEENT: Atraumatic, PERRLA, EOMI Neck: Supple, JVD not distended Respiratory: Clear to auscultation bilaterally, Normal air movement Cardiovascular: Regular rate/rhythm, Normal S1 S2 Gastrointestinal: Normal bowel sounds, No tenderness Musculoskeletal: No tenderness Integumentary: No rashes Neurological: Normal speech, Normal tone, Normal affect Lymphatics: No axilla or inguinal lymphadenopathy - Studies Microbiology Data (last 24 hrs): 09/12/20 15:30 Blood - Blood Aerobic Blood Culture - Final Meth Resistant Staph Aureus 09/12/20 15:30 Blood - Blood Blood Culture Gram Stain - Final 09/12/20 15:30 Blood - Blood Anaerobic Blood Culture - Final Meth Resistant Staph Aureus 09/12/20 15:30 Blood - Blood Gram Stain - Final Assessment & Plan - Problems (Diagnosis) (1) MRSA (methicillin resistant staph aureus) culture positive Current Visit: Yes Status: Acute Plan: 2 bottles posiitive Will start him on vanco. Will continue fluid bolus to improve bp. Levophed perhaps in the short term. However would like to avoid that. Will continue fluids and antibiotics. 09/16 continue vancomycin. His blood pressure and sugars are improving. His hb is s taying stable. Will consider d/c fluids tomorrow, or switching him to N saline (2) CHF (congestive heart failure) Current Visit: Yes Status: Acute Plan: Patient of Dr. Nelson's he is currently on no medications. Will give the patient lasix if necessary as he is recieving fluids and blood products. 09/14 Hypotensive will bolus him another 500 cc of fluids Qualifiers: Heart failure type: systolic Heart failure chronicity: chronic Qualified Code(s): I50.22 - Chronic systolic (congestive) heart failure (3) Parkinson disease Current Visit: No Status: Acute Plan: will continue carbidopa (4) End of life care Current Visit: Yes Status: Acute Plan: Have discussed with his and power of real estate attorney. His recent hospitalization seems to have greatly weakened him. judging by his weight loss and current anemia. Will start with transfusion. Possible gently hydration. However if he falls to improve than hospice is a possiblity in the patients future. His wanted DNR. Also did not want a PEG tube per his . 09/14 Patient patient was doing better yesteday. Was able to eat. did not want to talk about hospice. The improvement is good. She is hopefully. Will keep monitoring the patient. Hopefully he continues to improve. However will adjust as we can (5) Stage IV pressure ulcer of sacral region Current Visit: No Status: Acute Plan: will continue current dresssing Have discussed with the that given his current nutritional status he will have a difficult healing process. (6) Hypoglycemia Current Visit: Yes Status: Acute Plan: will start the patient on d5 1/2 N. Give thiamiine first. Will see if we can feed him. Will consider PT after we correct this. (7) Anemia Current Visit: Yes Status: Acute Plan: He is currently guiac negative. Will check reticulocyte count and iron studies. Will transfuse 2 units PRBC. May need lasix in between to prevent fluid overload. low reticulocyte count. We need to continue nutritional support. Aplastic anemia His anemia is corrected. Qualifiers: Anemia type: bone marrow failure (8) Sepsis associated hypotension Current Visit: Yes Status: Resolved Plan: Patient was requiring a lot of boluses. His blood pressure has improved. However will keep an eye on him and bolus him as necessary. Would like to avoid pressors. Will consider an oral antibiotic on discharge. Vs a picc line Physician Review: Patient Assessed, Agree with Above Assessment and Plan (spoouse)
[2020-09-16] MEDS: VANCOMYCIN 1.25 GM in NA CHLORIDE 0.9% 250 ML IVPB SCH ×2 (12:00→23:34)
[2020-09-16] MEDS: PRAMIPEXOLE 1 MG TAB PO SCH ×3 (12:42→22:34)
[2020-09-16] MEDS ORDERED: clonazePAM 0.5 MG TAB PO ONE (18:36)
[2020-09-16] MEDS ORDERED: SELEGILINE HCL 5 MG CAP PO SCH (21:00)
[2020-09-16] MEDS: SELEGILINE HCL 5 MG CAP PO SCH (21:00)
[2020-09-17] MEDS: LEVOTHYROXINE SOD 0.05 MG TABLET PO SCH (05:37)
[2020-09-17 06:28] LABS: Absolute Lymphocytes (CBC) 0.7 K/uL (0.7-4.9); Basophils % 0.6 % (0-1.3); Hematocrit 25.7 % (39.6-49.0); Lymphocytes % 14.5 % (15.3-44.8); RBC Red Blood Cell Count 2.83 M/uL (4.33-5.43)
[2020-09-17 06:40] LABS: AST/SGOT 23 U/L (15-37); Albumin 1.4 g/dL (3.4-5.0); Alkaline Phosphatase 71 U/L (45-117); BUN Blood Urea Nitrogen 11 mg/dL (7-18); Bicarbonate 27 mmol/L (21-32); Bilirubin Total 0.3 mg/dL (0.2-1.0); Glucose Level 73 mg/dL (74-106); Potassium 3.5 mmol/L (3.5-5.1); Protein, Total 5.3 g/dL (6.4-8.2); Sodium Level 134 mmol/L (136-145)
[2020-09-17 06:47] LABS: ALT/SGPT < 6 U/L (12-78)
[2020-09-17] MEDS: SELEGILINE HCL 5 MG CAP PO SCH ×2 (09:00→21:00)
[2020-09-17] MEDS: CARBIDOPA PO SCH ×4 (09:51→20:46)
[2020-09-17] MEDS: PRAMIPEXOLE 1 MG TAB PO SCH ×4 (09:51→20:47)
[2020-09-17] MEDS: KETOROLAC OPTHALMIC 5 ML BOT OPTH PRN (09:51)
[2020-09-17] MEDS: LEVODOPA PO SCH ×4 (09:51→20:46)
[2020-09-17] MEDS: ENTACAPONE PO SCH ×4 (09:51→20:46)
[2020-09-17] MEDS: COLLAGENASE 30 GM OINTMENT TOP SCH (09:52)
[2020-09-17] MEDS: ENSURE HIGH PROTEIN 237 ML CAN PO SCH ×3 (09:52→16:54)
[2020-09-17] MEDS: VANCOMYCIN 1.25 GM in NA CHLORIDE 0.9% 250 ML IVPB SCH (12:16)
--- NOTE | 2020-09-17 15:21 | P.PN ---
Subjective Date of Service: 09/17/20 Primary Care Provider: Gladys Chief Complaint: Anemia Subjective: Improving (Patient agitated at night. called worried about taking care of him at home and wants to revist hospice) Review of Systems 10-point ROS is otherwise unremarkable Physical Examination - Vital Signs Temperature: 97.0 F Blood Pressure: 102/66 Pulse: 67 Respirations: 16 Pulse Ox (%): 97 - Physical Exam General: In no apparent distress HEENT: Atraumatic, PERRLA, EOMI Neck: Supple, JVD not distended Respiratory: Clear to auscultation bilaterally, Normal air movement Cardiovascular: Regular rate/rhythm, Normal S1 S2 Gastrointestinal: Normal bowel sounds, No tenderness Musculoskeletal: No tenderness Integumentary: No rashes Neurological: Normal speech, Normal tone, Normal affect Lymphatics: No axilla or inguinal lymphadenopathy - Studies Microbiology Data (last 24 hrs): 09/12/20 15:45 Blood - Blood Aerobic Blood Culture - Final Meth Resistant Staph Aureus 09/12/20 15:45 Blood - Blood Blood Culture Gram Stain - Final Assessment & Plan - Problems (Diagnosis) (1) End of life care Current Visit: Yes Status: Acute Plan: Have discussed with his and power of commercial litigation attorney. His recent hospitalization seems to have greatly weakened him. judging by his weight loss and current anemia. Will start with transfusion. Possible gently hydration. However if he falls to improve than hospice is a possiblity in the patients future. His wanted DNR. Also did not want a PEG tube per his . 09/17 wants to start the patients on hospice. [facility]. Have also discussed the patient with Anabell HOUGH from wound care. He is unlikely to heal the wound with a prealbumin as low as his. He may have not lost as much as 40lbs in the last 2 months as previously stated . The patient most likely did not regain 20lbs since Thursday. Most likely and error in measurement. However even at this current reading he has lost 20-30lbs in the last 2 months. (2) MRSA (methicillin resistant staph aureus) culture positive Current Visit: Yes Status: Acute Plan: 2 bottles posiitive Will start him on vanco. Will continue fluid bolus to improve bp. Levophed perhaps in the short term. However would like to avoid that. Will continue fluids and antibiotics. 09/17 Will continue vancomycin for a day. Can discharge on bactrim and doxycycline. He is sensitive to both of these and hopefully there can be some synergy. (3) CHF (congestive heart failure) Current Visit: Yes Status: Acute Plan: Patient of Dr. Nelson's he is currently on no medications. Will give the patient lasix if necessary as he is recieving fluids and blood products. 09/14 Hypotensive will bolus him another 500 cc of fluids Qualifiers: Heart failure type: systolic Heart failure chronicity: chronic Qualified Code(s): I50.22 - Chronic systolic (congestive) heart failure (4) Parkinson disease Current Visit: No Status: Acute Plan: will continue carbidopa (5) Stage IV pressure ulcer of sacral region Current Visit: No Status: Acute Plan: will continue current dresssing Have discussed with the that given his current nutritional status he will have a difficult healing process. (6) Hypoglycemia Current Visit: Yes Status: Acute Plan: will start the patient on d5 08/18 N. Give thiamiine first. Will see if we can feed him. Will consider PT after we correct this. (7) Anemia Current Visit: Yes Status: Acute Plan: He is currently guiac negative. Will check reticulocyte count and iron studies. Will transfuse 2 units PRBC. May need lasix in between to prevent fluid overload. low reticulocyte count. We need to continue nutritional support. Aplastic anemia His anemia is corrected. Qualifiers: Anemia type: bone marrow failure (8) Sepsis associated hypotension Current Visit: Yes Status: Resolved Plan: Patient was requiring a lot of boluses. His blood pressure has improved. However will keep an eye on him and bolus him as necessary. Would like to avoid pressors. Will consider an oral antibiotic on discharge. Vs a picc line Discharge Plan: Home Plan to discharge in: 24 Hours - Code Status/Comfort Care Code Status Assessed: No Physician Review: Patient Assessed, Agree with Above Assessment and Plan (spoouse) Critical Care: No Time Spent Managing Pts Care (In Minutes): 35
[2020-09-17] MEDS: D5 0.45 NS 1,000 ML IV SCH (16:53)
[2020-09-17] MEDS ORDERED: BUPROPION HCL XL 150 MG TAB PO SCH (21:00)
[2020-09-18] MEDS: VANCOMYCIN 1.25 GM in NA CHLORIDE 0.9% 250 ML IVPB SCH (00:55)
[2020-09-18] MEDS: D5 0.45 NS 1,000 ML IV SCH (05:41)
[2020-09-18] MEDS: LEVOTHYROXINE SOD 0.05 MG TABLET PO SCH (05:41)
[2020-09-18 05:49] LABS: Absolute Lymphocytes (CBC) 0.8 K/uL (0.7-4.9); Basophils % 0.6 % (0-1.3); Hematocrit 27.2 % (39.6-49.0); Lymphocytes % 19.3 % (15.3-44.8); MPV 7.9 fL (7.6-11.3)
[2020-09-18 06:01] LABS: AST/SGOT 27 U/L (15-37); Albumin 1.5 g/dL (3.4-5.0); Alkaline Phosphatase 69 U/L (45-117); BUN Blood Urea Nitrogen 11 mg/dL (7-18); Bicarbonate 29 mmol/L (21-32); Bilirubin Total 0.4 mg/dL (0.2-1.0); Glucose Level 78 mg/dL (74-106); Potassium 3.9 mmol/L (3.5-5.1); Protein, Total 5.6 g/dL (6.4-8.2); Sodium Level 133 mmol/L (136-145)
[2020-09-18 06:02] LABS: ALT/SGPT < 6 U/L (12-78)
[2020-09-18 08:02] LABS: Blood Morphology Comment NOT SEEN (NOT SEEN); Platelet Estimate ADEQ; White Blood Cell Scan OK (OK)
[2020-09-18] MEDS: CARBIDOPA PO SCH (08:16)
[2020-09-18] MEDS: ENTACAPONE PO SCH (08:16)
[2020-09-18] MEDS: LEVODOPA PO SCH (08:16)
[2020-09-18] MEDS: PRAMIPEXOLE 1 MG TAB PO SCH (08:16)
[2020-09-18] MEDS: ENSURE HIGH PROTEIN 237 ML CAN PO SCH (08:16)
[2020-09-18] MEDS: COLLAGENASE 30 GM OINTMENT TOP SCH (08:17)
[2020-09-18] MEDS: SELEGILINE HCL 5 MG CAP PO SCH (08:17)
[2020-09-18] MEDS: KETOROLAC OPTHALMIC 5 ML BOT OPTH PRN (08:17)
[2020-09-18 08:39] VITALS: BP 115/70; TEMP 96.8
--- NOTE | 2020-09-18 09:05 | P.DS ---
Admission Date: 09/12/20 Discharge Date: 09/18/20 Primary Care Provider: Gladys Disposition: HOSPICE-HOME Discharge Condition: FAIR Reason for Admission: Anemia - Problems (1) End of life care Current Visit: Yes Status: Acute (2) MRSA (methicillin resistant staph aureus) culture positive Current Visit: Yes Status: Acute (3) CHF (congestive heart failure) Current Visit: Yes Status: Acute Qualifiers: Heart failure type: systolic Heart failure chronicity: chronic Qualified Code(s): I50.22 - Chronic systolic (congestive) heart failure (4) Parkinson disease Current Visit: No Status: Acute (5) Stage IV pressure ulcer of sacral region Current Visit: No Status: Acute (6) Hypoglycemia Current Visit: Yes Status: Acute (7) Anemia Current Visit: Yes Status: Acute Qualifiers: Anemia type: bone marrow failure (8) Sepsis associated hypotension Current Visit: Yes Status: Resolved Brief History of Present Illness: Patient who recently established care with [facility]. The chad has a hisotry of Parkinsons and CHF. He was recently admitted to [facility] for an infected left elbow Requiring surgery and a stay in rehab. During this time the patient lost 20lbs and developed a stage 4 sacral decubitus. The patient came to the wound care center this Thursday. He was hypotensive and difficult to arouse this morning. His called. Was directed to call EMS The patient was found to be very Anemic and Guiac negative. The patient is not verbal. The history is taken with the ER. Staff and the patients spouse who is at the bedside. Hospital Course: Patient came in with hypotensive. Was found to be anemic. The patient was transfused 2 units. The patient was admitted. He continued to be hypotensive and was given fluids Was found to have a MRSA infection in 2 blood culture bottles. The patient was recovering.. However he had some agitation. Was treated with intermittent benzodiazepam. We have consulted hospice. The at first had some trepidation. However she does not feel that she can take care of him at home. We have consulted [facility] hospice care The patient qualifies due to her parkinsons and has lost at least 20lbs since his Dec. Admission to [facility] Vital Signs/Physical Exam: Temp Pulse Resp BP Pulse Ox 96.8 F 63 18 115/70 100 09/18/20 08:00 09/18/20 08:00 09/18/20 08:00 09/18/20 08:00 09/18/20 08:00 General: Alert, In no apparent distress HEENT: Atraumatic, PERRLA, EOMI Neck: Supple, JVD not distended Respiratory: Clear to auscultation bilaterally, Normal air movement Cardiovascular: Regular rate/rhythm, Normal S1 S2 Gastrointestinal: Normal bowel sounds, No tenderness Musculoskeletal: No tenderness Integumentary: No rashes Neurological: Normal speech, Normal tone, Normal affect Lymphatics: No axilla or inguinal lymphadenopathy Laboratory Data at Discharge: WBC 4.40 K/uL (4.3-10.9) 09/18/20 05:25 Hgb 8.8 g/dL (13.6-17.9) L 09/18/20 05:25 Hct 27.2 % (39.6-49.0) L 09/18/20 05:25 Plt Count 192 K/uL (152-406) 09/18/20 05:25 PT 14.3 SECONDS (9.5-12.5) H 09/12/20 15:45 INR 1.22 09/12/20 15:45 Sodium 133 mmol/L (136-145) L 09/18/20 05:25 Potassium 3.9 mmol/L (3.5-5.1) 09/18/20 05:25 BUN 11 mg/dL (7-18) 09/18/20 05:25 Creatinine 0.36 mg/dL (0.55-1.3) L 09/18/20 05:25 Glucose 78 mg/dL (74-106) 09/18/20 05:25 Magnesium 2.0 mg/dL (1.8-2.4) 09/16/20 06:42 Total Bilirubin 0.4 mg/dL (0.2-1.0) 09/18/20 05:25 AST 27 U/L (15-37) 09/18/20 05:25 ALT < 6 U/L (12-78) L 09/18/20 05:25 Alkaline Phosphatase 69 U/L (45-117) 09/18/20 05:25 Troponin I < 0.02 ng/mL (0.0-0.045) 09/12/20 23:43 Home Medications: Carbidopa/Levodopa [Carbidopa-Levo ER 50-200 Tab] 1 each PO QID 09/11/20 Dabigatran Etexilate Mesylate [Pradaxa] 150 mg PO BID 09/11/20 Gatifloxacin 2.5 ml OP TID 09/11/20 Ibuprofen 200 mg PO Q6HP PRN 09/11/20 L.acidoph,Paracasei, B.lactis [Probiotic] 1 each PO DAILY 09/11/20 Levothyroxine [Synthroid] 50 mcg PO [id number] 09/11/20 Potassium Chloride [Micro-K] 10 meq PO BID 09/11/20 Pramipexole Di-HCl [Pramipexole ER] 1.5 mg PO QID 09/11/20 Selegiline HCl 5 mg PO BID 09/11/20 Moxifloxacin HCl [Vigamox 0.5% Ophth [place] OR USE] 1 drops OPTH TID 09/13/20 Diet: Regular Activity: Fall precautions Followup: Pk Graham MD [ACTIVE - CAN ADMIT] - Physician Review: Patient Assessed, Agree with Above Assessment and Plan Time spent managing pt's care (in minutes): 40
[2020-09-18 10:23] VITALS: O2SAT 100
[2020-09-18] MEDS ORDERED: VANCOMYCIN/NS 1 gm 1 GM/250 ML BAG IVPB SCH (12:00)
== END 2020-09-18 11:27 | disposition hospice, home (50) | DRG 871 ==
LOC: ER 14:46 → ERHOLD 20:07 → 2ND 09-13 15:52
PROVIDERS: ADMIT Internal Medicine; ATTEND Internal Medicine
PROC: 30233N1 Transfusion of Nonautologous Red Blood Cells into Peripheral Vein, Percutaneous Approach (ICD-10-PCS; principal; 2020-09-12)
DX: A41.02 Sepsis due to Methicillin resistant Staphylococcus aureus (principal); L89.154 Pressure ulcer of sacral region, stage 4; E43 Unspecified severe protein-calorie malnutrition; R57.1 Hypovolemic shock; I50.22 Chronic systolic (congestive) heart failure; D61.9 Aplastic anemia, unspecified; E03.9 Hypothyroidism, unspecified; E16.2 Hypoglycemia, unspecified; G20 Parkinson's disease; B95.62 Methicillin resistant Staphylococcus aureus infection as the cause of diseases classified elsewhere; Z66 Do not resuscitate; Z68.24 Body mass index [BMI] 24.0-24.9, adult; Z88.0 Allergy status to penicillin; Z79.890 Hormone replacement therapy; Z79.899 Other long term (current) drug therapy; Z51.5 Encounter for palliative care; Z96.653 Presence of artificial knee joint, bilateral; Z20.822 Contact with and (suspected) exposure to COVID-19
CPT/HCPCS: 36415; 51702; 71045; 80048; 80053; 80076; 80202; 81003; 81015; 82040; 82274; 82947; 83605; 83735; 84134; 84145; 84155; 84484; 85025; 85044; 85610; 85652; 86850; 86900; 86901; 87040; 87070; 87075; 87077; 87186; 87205; 93005; 96361; 96374; 97110; 97112; 97161; 97530; 99205; 99285; C9113; J3370; J3411; J3590; J7030; J7040; J7050; J7799; P9016; U0003